=== PATIENT | female | born 1990 | race African-American/Black ===

== ENCOUNTER 2023-11-06 10:05 | Emergency (ER) | payer MEDICARE, MEDICAID ==
[~2023-11-06] VITALS: Ht 165.1 cm; Wt 61.0 kg
[~2023-11-06 10:05] MED LIST: BACL-141 PO; DIPH25CA83 PO; ONDA4TAB5 PO; OXYC10TA48 PO
[2023-11-06 10:07] VITALS: O2SAT 99
[2023-11-06] MEDS: PANTOPRAZOLE SODIUM 40 MG/VIAL IV ONE (10:46)
[2023-11-06] MEDS: ONDANSETRON HCL 4MG/2ML INJ IV STA (10:46)
[2023-11-06] MEDS: SODIUM CHLORIDE 0.9% 1,000 ML IV ONE (10:47)
[2023-11-06] MEDS: MORPHINE SULFATE 4 MG/ML INJ (FOR IV/IM USE) IV ONE (11:12)
[2023-11-06 11:19] LABS: BASOPHILS % 0.6 % (0.0-2.0); DIFFERENTIAL COMMENT 0; EOSINOPHILS % 1.8 % (0.0-5.0); HEMATOCRIT. 31.9 % (36.0-48.0); HEMOGLOBIN. 10.3 g/dL (12.0-16.0); LYMPHOCYTES % 12.7 % (20.0-50.0); MEAN CORPUSCULAR HEMOGLOBIN 22.9 pg (28.0-32.0); MEAN CORPUSCULAR HGB CONC 32.4 g/dL (31.0-37.0); MEAN CORPUSCULAR VOLUME 70.8 fL (81.0-99.0); MEAN PLATELET VOLUME 9.3 fl (7.4-10.4); MONOCYTES % 6.9 % (2.0-8.0); PLATELET 182 x1000/uL (130-400); RED BLOOD CELL COUNT 4.51 mill/uL (4.2-5.4); RED CELL DISTRIBUTION WIDTH 14.9 % (11.6-14.6); WHITE BLOOD COUNT 6.2 x1000/uL (4.5-11.0)
[2023-11-06 11:22] LABS: CHLORIDE 110 mEq/L (98-107); POTASSIUM 4.1 mEq/L (3.5-5.1); SODIUM 140 mEq/L (136-145)
[2023-11-06 11:23] LABS: CALCIUM 9.1 mg/dL (8.7-10.4); CARBON DIOXIDE 25 mEq/L (21-32)
[2023-11-06 11:28] LABS: CREATININE 0.5 mg/dL (0.6-1.0); GLUCOSE 90 mg/dL (70-105); HCG SCREEN NEGATIVE; UREA NITROGEN BLOOD 7 mg/dL (9-23)
[2023-11-06 11:29] LABS: INR 1.1; PROTHROMBIN TIME 12.5 sec (9.6-11.0)
[2023-11-06 11:30] LABS: ALANINE AMINOTRANSFERASE 27 IU/L (10-49); ALBUMIN 4.3 g/dL (3.2-4.8); ASPARTATE AMINOTRANSFERASE 37 IU/L (<34); BILIRUBIN DIRECT 0.4 mg/dL (<=3.0); BILIRUBIN TOTAL 1.1 mg/dL (0.1-1.0); PROTEIN TOTAL 7.2 g/dL (6.0-8.3)
[2023-11-06 11:36] LABS: ETHANOL BLOOD < 10 mg/dL (<10)
[2023-11-06 14:48] VITALS: BP 104/64; PULSE 56; RESP 12; TEMP 36.50292; O2SAT 100
== END 2023-11-06 15:09 | disposition home or self-care (01) ==
LOC: ER 10:14
DX: D57.819 Other sickle-cell disorders with crisis, unspecified (principal); Z91.013 Allergy to seafood
CPT/HCPCS: 80076; 80048; 80320; 84703; 85660; 83690; 85025; 85044; 85610; 36415; 74176; 96361; 96374; 96375; 99285; J2405; J2470; J2270; J7030; G0480